=== PATIENT | female | born 1990 | race American Indian/Alaskan Native ===

== ENCOUNTER 2017-12-22 21:30 | Emergency (ER) | payer OTHER ==
[2017-12-22 22:08] VITALS: BP 119/68
[2017-12-22 23:35] LABS: HCG Qualitative,Urine Negative (Negative)
[2017-12-23] MEDS ORDERED: MOTRIN PO ONE (00:22)
--- NOTE | 2017-12-23 00:22 | Emergency Department Report ---
ED General Adult HPI - General Chief complaint: Pain General Stated complaint: CHEST,BODY PAIN Time Seen by Provider: 12/23/17 00:09 Source: patient Mode of arrival: Ambulatory Limitations: No Limitations - History of Present Illness Initial comments: 27-year-old -[place] female presents to the emergency room for 1 week's worth of body pain chest pain with cough and congestion. Patient now reports chest pain on movement. Patient reports that she's had intermittent chest pain for one week. As well as body aches. Patient has not taken anything for pain management. She reports that she has nasal congestion and cough 2 days ago she admits to sneezing, runny nose, postnasal drip. She denies any fever or chills no nausea no vomiting or sore throat. She reports the chest pain is worse with leaning back or lying down. She reports she has a past medical history of migraines since currently follow up with Dr. Patton her primary care provider. -: week(s) (1) Location: chest Radiation: non-radiation Severity scale (0 -10): 8 Quality: sharp Consistency: intermittent Improves with: none Worsens with: other Associated Symptoms: chest pain, cough. denies: fever/chills, headaches, loss of appetite, nausea/vomiting, shortness of breath, weakness Treatments Prior to Arrival: none - Related Data Previous Rx's Medication Instructions Recorded Last Taken Type Ibuprofen [Motrin 600 MG tab] 600 mg PO Q8H #20 tablet 12/23/17 Unknown Rx Loratadine [Claritin] 10 mg PO DAILY #15 tablet 12/23/17 Unknown Rx Allergies Allergy/AdvReac Type Severity Reaction Status Date / Time No Known Allergies Allergy Unverified 12/22/17 23:05 ED Review of Systems ROS: Stated complaint: CHEST,BODY PAIN Other details as noted in HPI Constitutional: denies: chills, fever Eyes: denies: eye pain, eye discharge, vision change ENT: congestion, other (rhinorrhea, sneezing) Respiratory: cough. denies: shortness of breath, SOB with exertion, wheezing Cardiovascular: chest pain. denies: palpitations Gastrointestinal: denies: abdominal pain, nausea, diarrhea Genitourinary: denies: urgency, dysuria, discharge Musculoskeletal: denies: back pain, joint swelling, arthralgia Skin: denies: rash, lesions Neurological: denies: headache, weakness, paresthesias Psychiatric: denies: anxiety, depression ED Past Medical Hx - Past Medical History Hx Headaches / Migraines: Yes - Surgical History Past Surgical History?: No - Social History Smoking Status: Never Smoker Substance Use Type: None - Medications Home Medications: Home Medications Medication Instructions Recorded Confirmed Last Taken Type Ibuprofen [Motrin 600 MG tab] 600 mg PO Q8H #20 tablet 12/23/17 Unknown Rx Loratadine [Claritin] 10 mg PO DAILY #15 tablet 12/23/17 Unknown Rx ED Physical Exam - General Limitations: No Limitations General appearance: alert, in no apparent distress - Head Head exam: Present: atraumatic, normocephalic - Eye Eye exam: Present: EOMI - ENT ENT exam: Present: normal orophraynx, mucous membranes moist - Neck Neck exam: Present: normal inspection, full ROM. Absent: tenderness, lymphadenopathy - Respiratory Respiratory exam: Present: normal lung sounds bilaterally. Absent: respiratory distress, wheezes - Cardiovascular Cardiovascular Exam: Present: regular rate - GI/Abdominal GI/Abdominal exam: Present: soft, normal bowel sounds - Extremities Exam Extremities exam: Present: full ROM - Back Exam Back exam: Present: normal inspection - Neurological Exam Neurological exam: Present: alert, oriented X3 - Psychiatric Psychiatric exam: Present: normal affect, normal mood - Skin Skin exam: Present: warm, dry, intact, normal color. Absent: rash ED Course Vital Signs 12/22/17 22:07 Temperature 98.1 F Pulse Rate 64 Respiratory 18 Rate Blood Pressure 119/68 O2 Sat by Pulse 99 Oximetry ED Medical Decision Making - Medical Decision Making Patient's been evaluated by this provider in fast track. Ibuprofen 600 mg given for pain management. Patient has reproducible chest pain. After having the cough and cold. We'll diagnose patient with costochondritis as well as allergic rhinitis Patient should take ibuprofen 600 mg every 8 hours as needed. She did start taking Claritin [id number] 10 mg daily for sneezing and cough runny nose. Patient to follow-up with her primary care provider if symptoms persist or gets worse. Critical care attestation.: If time is entered above; I have spent that time in minutes in the direct care of this critically ill patient, excluding procedure time. ED Disposition Clinical Impression: Costochondritis, acute Allergic rhinitis Qualifiers: Allergic rhinitis trigger: unspecified Allergic rhinitis seasonality: unspecified Qualified Code(s): J30.9 - Allergic rhinitis, unspecified Disposition: DC-01 TO HOME OR SELFCARE Is pt being admited?: No Does the pt Need Aspirin: No Condition: Stable Instructions: Costochondritis (ED), Allergic Rhinitis (ED) Additional Instructions: Please take pain medication and allergy medication as prescribed. If her symptoms persist or gets worse please follow up with her primary care provider. Prescriptions: Ibuprofen [Motrin 600 MG tab] 600 mg PO Q8H #20 tablet Loratadine [Claritin] 10 mg PO DAILY #15 tablet Forms: Work/School Release Form(ED)
== END 2017-12-23 00:54 | disposition home or self-care (01) ==
LOC: ED 21:30
DX: M94.0 Chondrocostal junction syndrome [Tietze] (principal); J30.9 Allergic rhinitis, unspecified; G43.909 Migraine, unspecified, not intractable, without status migrainosus
CPT/HCPCS: 81025; 99283